=== PATIENT | female | born 1990 | race Caucasian/White ===

== ENCOUNTER 2016-07-23 23:58 | Emergency (ER) | payer OTHER ==
[~2016-07-23] VITALS: Ht 167.6 cm; Wt 93.6 kg
[~2016-07-23 23:58] MED LIST: IBUP-1222 PO; OXYC-302 PO; PREN1TAB52 PO
[2016-07-24] VITALS: BP 136/85
[2016-07-24] MEDS ORDERED: DEXAMETHASONE 4 MG TABLET PO ONE (00:30)
[2016-07-24] MEDS ORDERED: DEXAMETHASONE 4 MG TABLET ONE (00:46)
[2016-07-24] MEDS ORDERED: LORA10TA75 PO (00:54)
[2016-07-24] MEDS ORDERED: ALBU8.5H3 INH (00:54)
== END 2016-07-24 01:11 | disposition home or self-care (01) ==
LOC: ED 07-24 00:26
DX: J02.8 Acute pharyngitis due to other specified organisms (principal); Z90.89 Acquired absence of other organs
CPT/HCPCS: 99282